=== PATIENT | female | born 1980 | race Two or more races ===

== ENCOUNTER 2019-11-02 07:13 | Emergency (ER) | payer MEDICAID ==
[~2019-11-02] VITALS: Ht 170.2 cm; Wt 72.6 kg
[2019-11-02 07:31] VITALS: BP 111/81
[2019-11-02] MEDS ORDERED: KETOROLAC TROMETH 60MG/2ML VIAL IM ONE (08:15)
== END 2019-11-02 09:15 | disposition home or self-care (01) ==
LOC: ER 07:13
DX: M54.41 Lumbago with sciatica, right side (principal)
CPT/HCPCS: 72100; 96372; 99283; J1885